=== PATIENT | female | born 1965 | race Caucasian/White ===

== ENCOUNTER 2021-02-22 19:32 | Inpatient (IN) | payer OTHER ==
[~2021-02-22] VITALS: Ht 149.9 cm; Wt 68.0 kg
[2021-02-22] MEDS ORDERED: ZESTRIL10 M1 (19:57)
--- NOTE | 2021-02-22 19:58 | NUR ---
PTE SE RECIBE POR BLEEDING ANAL Y REFIEREDO MEDICO DEL DR.TOUS REFIERE PTE.
[2021-02-23] MEDS ORDERED: ATORVASTATIN CA10 MG (08:07)
[2021-02-23] MEDS ORDERED: ALENDRONATE SOD70 MG (08:07)
[2021-02-23] MEDS ORDERED: FLEVOXIN TABLE1 EACH (08:07)
[2021-02-23] MEDS ORDERED: HYDROCORT-PRAMO30 G1 (08:08)
== END 2021-02-24 14:23 | disposition home or self-care (01) | DRG 348 ==
LOC: ER 19:32 → SURG 21:09
PROVIDERS: ADMIT Colon & Rectal Surgery; ATTEND Colon & Rectal Surgery
PROC: 3E0T3BZ Introduction of Anesthetic Agent into Peripheral Nerves and Plexi, Percutaneous Approach (ICD-10-PCS; 2021-02-23)
PROC: 0DBQ7ZZ Excision of Anus, Via Natural or Artificial Opening (ICD-10-PCS; principal; 2021-02-23 17:00)
DX: D12.8 Benign neoplasm of rectum (principal); K62.5 Hemorrhage of anus and rectum; K62.89 Other specified diseases of anus and rectum; K64.1 Second degree hemorrhoids; I10 Essential (primary) hypertension; E78.5 Hyperlipidemia, unspecified